=== PATIENT | male | born 1955 | race Caucasian/White ===

== ENCOUNTER → 2017-12-14 09:14 | Outpatient (CLI) | payer MEDICAID, SELFPAY ==
--- NOTE | 2017-12-14 09:20 | CI_ITS ---
Cerebrovascular Exam Indications: 780.4 Dizziness and giddiness. Vertigo. IMPRESSIONS 1. The bilateral vertebral arteries are patent with normal antegrade flow. 2. Study suggests less than 20% stenosis involving the right internal carotid artery and the left internal carotid artery. History: Coronary artery disease. Risk factors: Hypertension. History of NC 3 years ago with stents placed. Carotid duplex study. Complete study and Doppler flow study including spectral analysis, color and palencia scale imaging. Height: Height: 180.3cm. Height: 71in. Weight: Weight: 98.4kg. Weight: 216.5lb. Body mass index: BMI: 30.3kg/m^2. Body surface area: BSA: 2.24m^2. Location: Vascular laboratory. Patient status: Outpatient. Tables: Arterial flow: + +--------+--------+ Location V sys V ed + +--------+--------+ Right CCA - proximal 83.3cm/s 27.5cm/s + +--------+--------+ Right CCA - distal 78.6cm/s 26.7cm/s + +--------+--------+ Right ECA 87.1cm/s -------- + +--------+--------+ Right ICA - proximal 50.2cm/s 23.7cm/s + +--------+--------+ Right ICA - mid 73.3cm/s 30.9cm/s + +--------+--------+ Right ICA - distal 68.9cm/s 26.5cm/s + +--------+--------+ Right vertebral 45.2cm/s -------- + +--------+--------+ Left CCA - proximal 93.7cm/s 24.8cm/s + +--------+--------+ Left CCA - distal 99.8cm/s 28.7cm/s + +--------+--------+ Left ECA 92.4cm/s -------- + +--------+--------+ Left ICA - proximal 53.5cm/s 22.6cm/s + +--------+--------+ Left ICA - mid 87.4cm/s 33.3cm/s + +--------+--------+ Left ICA - distal 83cm/s 34.6cm/s + +--------+--------+ Left vertebral 33.4cm/s -------- + +--------+--------+ Velocity ratios: + + + + + + Right, V sys Right, V ed Left, V sys Left, V ed + + + + + + Max ICA/dist CCA 0.93 1.16 0.88 1.21 + + + + + + (Report amended ) Electronically signed by: Jd Greenfield [id number]
== END ==
PROVIDERS: PCP Family Medicine; Visit Provider Family Medicine
DX: R42 Dizziness and giddiness (principal)
CPT/HCPCS: 93880